=== PATIENT | female | born 1975 | race Caucasian/White ===

== ENCOUNTER → 2023-05-06 12:00 | Outpatient (CLI) | payer OTHER, SELFPAY ==
--- NOTE | 2023-05-06 12:02 | DI.US.S_ITS ---
PROCEDURE: US PELVIC COMPLETE INDICATIONS: Ovarian pain/pelvic discomfort TECHNIQUE: Real-time scanning was performed of the pelvic organs, with image documentation. Additional endovaginal scanning was necessary due to incomplete visualization of the adnexal and endometrial structures by transabdominal scanning. COMPARISON: None. FINDINGS: Uterus: Uterus is anteverted and normal in size at 5.2 x 2.7 x 3.1 cm. The myometrium is homogeneous. The endometrium measures 7 mm combined thickness. IUD is not well visualized. Ovaries: The right ovary measures 2.0 x 1.2 x 1.5 cm, with a calculated ovarian volume of 1.8 cc. The left ovary . Other: No pathologic free abdominal or pelvic fluid. IMPRESSION: Poor visualization of IUD. We strive to produce accurate, complete, and clear reports of imaging services. To assist us in improving patient care, this report was composed using standard report templates and voice recognition software. Therefore, it may contain abnormal punctuation, insertions and/or omissions. Occasional wrong-word or sound-alike substitutions may occur. Though we review the report and make efforts to correct it, we do recommend that the report be read carefully in proper context to recognize any text inaccuracies. Dictated by: Vanessa Casarez M.D. on 05/06/2023 at 16:36 Approved by: Vanessa Casarez M.D. on 05/06/2023 at 16:37
== END ==
PROVIDERS: Referring Provider Obstetrics & Gynecology; Visit Provider Obstetrics & Gynecology
DX: R10.2 Pelvic and perineal pain (principal)
CPT/HCPCS: 76830; 76856

== ENCOUNTER → 2023-05-14 11:42 | Outpatient (CLI) | payer OTHER, SELFPAY ==
[2023-05-14 17:47] LABS: Follicle Stimulating Hormone 76.3 mIU/mL
[2023-05-14 18:03] LABS: Estradiol, Total 24.2 pg/mL
== END ==
PROVIDERS: Referring Provider Obstetrics & Gynecology; Visit Provider Obstetrics & Gynecology
DX: N95.1 Menopausal and female climacteric states (principal); R35.0 Frequency of micturition
CPT/HCPCS: 36415; 82670; 83001; 87086; 87147

== ENCOUNTER → 2024-12-08 16:45 | Outpatient (CLI) | payer OTHER, SELFPAY ==
--- NOTE | 2024-12-08 16:46 | DI.US.S_ITS ---
PROCEDURE: US PELVIC COMPLETE INDICATIONS: PMB/check IUD placement TECHNIQUE: Real-time scanning was performed of the pelvic organs, with image documentation. Additional endovaginal scanning was necessary due to incomplete visualization of the adnexal and endometrial structures by transabdominal scanning. COMPARISON: [facility], [place], US PELVIC COMPLETE, 05/06/2023, 12:11. FINDINGS: Uterus: Uterus is retroverted and normal in size at 6.9 x 1.9 x 4.5 cm. The myometrium is heterogeneous. The endometrium measures 2.2 mm combined thickness. Intrauterine device appears to be in appropriate position. Ovaries: The right ovary measures 1.1 x 0.6 x 1.7 cm, with a calculated ovarian volume of 0.6 cc. The left ovary measures 1.1 x 1.1 x 0.8 cm, with a calculated ovarian volume of 0.5 cc. The ovaries have a normal sonographic appearance. Less than 12 follicles can be seen in each ovary. No adnexal masses are seen. Other: No pathologic free abdominal or pelvic fluid. IMPRESSION: Intrauterine device appears to be in appropriate position. Endometrium is normal in thickness. We strive to produce accurate, complete, and clear reports of imaging services. To assist us in improving patient care, this report was composed using standard report templates and voice recognition software. Therefore, it may contain abnormal punctuation, insertions and/or omissions. Occasional wrong-word or sound-alike substitutions may occur. Though we review the report and make efforts to correct it, we do recommend that the report be read carefully in proper context to recognize any text inaccuracies. Dictated by: Hernando De Luna M.D. on 12/09/2024 at 10:51 Approved by: Hernando De Luna M.D. on 12/09/2024 at 10:52
== END ==
LOC: US 16:46
PROVIDERS: Referring Provider Obstetrics & Gynecology; Visit Provider Obstetrics & Gynecology
DX: N95.0 Postmenopausal bleeding (principal); Z96.0 Presence of urogenital implants
CPT/HCPCS: 76830; 76856